=== PATIENT | male | born 1930 | race Caucasian/White ===

== ENCOUNTER → 2016-10-13 | Outpatient (CLI) | payer MEDICARE, OTHER ==
[~2016-10-13] MED LIST: ACETAMINOPHEN PO; ADVAIR 500-501 EACH INH; ADVAIR 5001 DISK W/1 IH; ADVAIR 5001 DISK W/D PO; ADVAIR DISKU1 500/50 INH; ALBUTEROL17 G1 IH; ALBUTEROL17 GM INH; ALBUTEROL2.5 MG/0.5 IH; ALFUZOSIN HCL10 MG; ALFUZOSIN HCL10 MG PO; ALFUZOSIN PO; ALLOPURINOL300 MG PO; ANTIVERT PO; ASPIRIN81 M2 PO; BENZONATATE PO; CARVEDILOL12.5 MG PO; CLOPIDOGREL75 MG PO; COREG12.5 M1 PO; COZAAR PO; DARVOCET-N 1001 TAB PO; DUONEB 2.5-0.5 M3 ML NEB; ELIQUIS2.5 MG PO; FLEXERIL PO; FUROSEMIDE40 MG PO; GLUCOPHAGE500 MG PO; IMDUR PO; LASIX PO; LASIX20 MG PO; LEVAQUIN750 MG PO; LEVOFLOXACIN500 MG PO; LOC PO; LOSARTAN POTASS50 MG PO; MEDI-MECLIZINE25 M1 PO; MEDROL PO; METFORMIN HCL500 M1 PO; NEXIUM PO; OMEPRAZOLE20 M2 PO; OMNICEF300 M1 PO; PHENERGAN PO; PHENERGAN25 MG PO; PREDNISOLONE5 MG PO; PREDNISONE PO; PREDNISONE10 MG PO; PRILOSEC PO; PROAIR HFA8.5 GM IH; PROAIR HFA8.5 GM INH; PROVENTIL INH; THEO-DUR300 MG DOB; THEO-DUR300 MG PO; THEOPHYLLIN PO; TYL325 PO; TYLOX 5-500 CA1 EACH PO; VICODIN PO; ZOCOR PO; ZYLOPRIM PO
--- NOTE | ~2016-10-13 | EKG ---
PATIENT: DELVIS RODRIGUEZ UNIT #: [id number] Ventricular Rate: 75 BPM Atrial Rate: 75 BPM P-R Interval: 148 ms QRS Duration: 90 ms Q-T Interval: 382 ms QTC Calculation(Bezet): 426 ms P [place]: 38 degrees Calculated R [place]: 54 degrees Calculated T [place]: 74 degrees Diagnosis Line: Sinus rhythm with Premature supraventricular Diagnosis Line: complexes Diagnosis Line: Otherwise normal ECG Diagnosis Line: When compared with ECG of 18-FEB-2015 13:34, Diagnosis Line: No significant change was found Diagnosis Line: Confirmed by PRINCESS SUAZO MD ([id number]) on 10/13/2016 Diagnosis Line: 5:29:13 PM INTERPRETING MD: GABRIELE VELAZCO
[2016-10-13 09:17] LABS: HEMATOCRIT 38.8 % (38.0-50.0); MEAN CELL VOLUME 91.6 FL (83-96); MEAN CORPUSCULAR HEMOGLOBIN 30.6 PG (28-34); MEAN CORPUSCULAR HGB CONC 33.5 g/dL (30-36); MEAN PLATELET VOLUME 9.2 FL (6.5-11.5); RED BLOOD COUNT 4.24 X10e (3.90-5.60); RED CELL DISTRIBUTION WIDTH 14.5 % (11.0-15.5); WHITE BLOOD COUNT 7.4 X10e3 (4.0-10.5)
[2016-10-13 09:38] LABS: INR 1.1; PARTIAL THROMBOPLASTIN TIME 28.5 SECONDS (23.5-31.3); PROTHROMBIN TIME (PATIENT) 11.2 SECONDS (9.6-11.5)
[2016-10-13 10:01] LABS: BLOOD UREA NITROGEN 31 mg/dL (9-23); BUN/CREATININE RATIO 28.18; CALCIUM SERUM 8.6 mg/dL (8.4-10.2); CARBON DIOXIDE 25 mmol/L (22-31); CHLORIDE 109 mmol/L (100-111); CREATININE SERUM 1.1 mg/dL (0.6-1.4); GLOM FILT RATE Estimated ABOVE60 mL/min (>60); GLUCOSE FASTING 121 mg/dL (70-110); SODIUM 140 mmol/L (135-145)
== END | disposition home or self-care (01) ==
LOC: CCVL 08:42
PROVIDERS: Internal Medicine Cardiovascular Disease
DX: I25.5 Ischemic cardiomyopathy (principal); I25.119 Atherosclerotic heart disease of native coronary artery with unspecified angina pectoris; R60.9 Edema, unspecified; R42 Dizziness and giddiness; R93.1 Abnormal findings on diagnostic imaging of heart and coronary circulation
CPT/HCPCS: 36415; 80048; 85027; 85610; 85730; 93005; 94640; C1769; C1887; C1894; J1644; J2250; J3010

== ENCOUNTER 2016-10-19 11:11 | Inpatient (IN) | payer MEDICARE, OTHER ==
--- NOTE | ~2016-10-19 | EKG ---
PATIENT: DELVIS RODRIGUEZ UNIT #: [id number] Ventricular Rate: 64 BPM Atrial Rate: 64 BPM P-R Interval: 150 ms QRS Duration: 88 ms Q-T Interval: 384 ms QTC Calculation(Bezet): 396 ms P [place]: 51 degrees Calculated R [place]: 22 degrees Calculated T [place]: 44 degrees Diagnosis Line: Sinus rhythm with Premature atrial complexes Diagnosis Line: Otherwise normal ECG Diagnosis Line: When compared with ECG of 13-OCT-2016 09:28, Diagnosis Line: No significant change was found Diagnosis Line: Confirmed by CALE GARCIA MD ([id number]) on 10/20/2016 Diagnosis Line: 4:44:17 PM INTERPRETING MD: JOSE VELAZCO
--- NOTE | ~2016-10-19 | DS ---
Unit #: [id number] #: [id number] Patient: DELVIS RODRIGUEZ [id number] [address] [address] [id number] I MR#: [id number] NAME: DELVIS RODRIGUEZ. ROOM: 312 Age: 86 Sex: M Admission Date: 10/19/2016 : 1930 Discharge Date: 10/22/2016 Attending Physician: Pankaj Hicks M.D. Primary Care Physician: Stephon Contreras M.D. DISCHARGE SUMMARY DIAGNOSIS ON ADMISSION Pneumonia. DIAGNOSES ON DISCHARGE 1. Pneumonia. 2. Chronic obstructive pulmonary disease. 3. Coronary artery disease. 4. History of congestive heart failure; no ejection fraction available. 5. Hypertension. 6. Hyperlipidemia. 7. Gout. 8. Gastroesophageal reflux disease. 9. Type 2 diabetes mellitus. 10. History of bladder cancer. DIAGNOSTIC STUDIES LABS: The patient's creatinine is 1.1, sodium 141, potassium 4.5. WBC is 9.3, hemoglobin 11, platelet count 166. Blood culture did not reveal any growth so far. Theophylline level was 3. IMAGING: On admission the patient had a CT scan of the chest done, which did not reveal any evidence of PE. There was an irregular density in the left base, which could be infiltrate, atelectasis, edema or mass. It was 16 mm. There was marked wall thickening in the lower lobe bronchi. A followup CT in 3 months was recommended. HOSPITAL COURSE This 86-year-old male was admitted to [facility] with shortness of air. Details are as per admission H and P. The patient was treated for COPD exacerbation and pneumonia. The patient has responded well to treatment and is much better. CT scan of chest was done with findings as above. Today, the patient is comfortable and is not in any acute distress. He wants to go home. CONDITION Stable. ACTIVITIES As tolerated. Unit #: [id number] #: [id number] Patient: DELVIS RODRIGUEZ DISCHARGE MEDICATIONS 1. Albuterol MDI 2 puffs q.4 hours p.r.n. for shortness of air. 2. Advair Diskus 500/50 mcg 1 inhalation b.i.d. 3. Metformin 500 mg p.o. daily. Restart in 3 days. 4. Coreg 12.5 mg p.o. daily. 5. Lasix 40 mg p.o. daily. 6. Zocor 40 mg p.o. daily. 7. Cozaar 50 mg p.o. daily. 8. Enteric-coated aspirin 81 mg p.o. daily. 9. Plavix 75 mg p.o. daily. 10. Theophylline 300 mg p.o. daily. 11. Imdur 30 mg p.o. daily. 12. Omnicef 300 mg p.o. b.i.d. for 5 days. 13. Prednisone 40 mg p.o. daily x5 days, then 20 mg p.o. daily for 5 days. FOLLOW-UP 1. The patient should follow up with primary care physician in 1 week. 2. The patient should have a CT scan of the chest in 3 months for followup on left lower lobe density. 3. 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 NOTE: The plan was discussed in detail with the patient, who showed complete understanding. Dictated by... Bassem Guzman/mirna TD: 10/22/2016 13:31 JOB #: [id number] DISCHARGE SUMMARY X Pankaj Hicks MD DISCHARGE SUMMARY
--- NOTE | ~2016-10-19 | CR72 ---
[facility] A Service of [facility] RADIOLOGY TEXT RESULTS PATIENT: DELVIS RODRIGUEZ LOCATION: C3A PC 312- : 30 UNIT #: [id number] AGE: [address]: Pankaj Hicks MD SEX: M ORDER DR: [id number] [facility] [address] [place], [place] [address] [id number] E MR#: [id number] Acc #: [id number] NAME: DELVIS RODRIGUEZ. : 1930 SEX: M STUDY DATE/TIME: 10/19/2016 9:44 UNIT: [facility] ROOM: STUDY DESCRIPTION: CR Chest Single View Portable Attending Physician: Praful Bullock M.D. Ordering Physician: Praful Bullock M.D. Primary Care Physician: Stephon Contreras M.D. MEDICAL IMAGING REPORT This report is preliminary unless electronic signature is present EXAM Chest portable, 10/19/2016. COMPARISON STUDIES 10/11/2016 HISTORY Shortness of breath, cough, and chest pain x2 weeks. History of bladder cancer. FINDINGS AP portable view is obtained and compared to the most recent study of August 2016, as well as films of February 2015. The heart size is stable. Lungs show evidence of chronic fibrosis and evidence of pleural disease on the right, with pleural calcification. There is prominence of interstitial markings, which I think in large part, is due to technique on this film, compared with the last. There is a little more focal infiltrate in the right base. CONCLUSION 1. 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 Prominence of the interstitial markings, which I think is accentuated by the technique. 2. Right basilar infiltrate. Dictated by... Tariq Hi M.D. THIS IS AN ELECTRONICALLY VERIFIED REPORT Tariq iH M.D. at 10/20/2016 4:45 PM [facility] A Service of [facility] RADIOLOGY TEXT RESULTS PATIENT: DELVIS RODRIGUEZ LOCATION: C3A PC 312-01 : 30 UNIT #: [id number] AGE: [address]: Pankja Hicks MD SEX: M ORDER DR: MERRY/vince TD: 10/19/2016 11:16 JOB #: [id number] MEDICAL IMAGING REPORT COPY
--- NOTE | ~2016-10-19 | CT16 ---
[facility] A Service of [facility] RADIOLOGY TEXT RESULTS PATIENT: DELVIS RODRIGUEZ LOCATION: [facility] - : 30 UNIT #: [id number] AGE: [address]: Pankaj Hicks MD SEX: M ORDER DR: [id number] [facility] [address] [place], [place] [address] [id number] I MR#: [id number] Acc #: [id number] NAME: DELVIS RODRIGUEZ. : 1930 SEX: M STUDY DATE/TIME: 10/19/2016 12:54 UNIT: C3A PCU ROOM: [facility] STUDY DESCRIPTION: CT Angio Chest for PE Attending Physician: Nany Rascon M.D. Ordering Physician: Praful Bullock M.D. Primary Care Physician: Stephon Contreras M.D. MEDICAL IMAGING REPORT This report is preliminary unless electronic signature is present EXAM CT scan of the chest with pulmonary embolus protocol. DATE OF EXAM 10/19/2016 INDICATION Shortness of air for 2 weeks. Dizziness, weakness today. COMPARISON Comparison chest CT from 10/07/2010. TECHNIQUE The patient was given 80 mL of Isovue-370 and spiral imaging was performed through the chest. 3D reconstructions of the pulmonary arteries were generated. NOTE: This CT exam was performed with one or more of the following radiation dose reduction techniques: automatic exposure control, adjustment of mA and/or kV according to patient size, and iterative reconstruction. FINDINGS There is optimal opacification of the pulmonary arteries and there is no CT evidence of pulmonary embolus. The aorta is not opacified but it is normal in size. The thyroid gland is normal. There is no mediastinal or hilar adenopathy. There is minimal benign-appearing pleural thickening in the right base with calcified pleural plaques and some noncalcified plaque formation as well. There is marked lower lobe bronchiectasis with wall thickening. There is an irregular density in the left base, measuring at least 16 mm in diameter. This might be atelectasis. This is new from 2010. The right pleural plaques are stable. IMPRESSION [facility] A Service of [facility] & [facility] RADIOLOGY TEXT RESULTS PATIENT: DELVIS RODRIGUEZ LOCATION: C3A 312-01 : 30 UNIT #: [id number] AGE: [address]: Pankaj Hicks MD SEX: M ORDER DR: 1. There is no CT evidence of pulmonary embolus. 2. Stable calcified pleural plaques and pleural thickening right base and right lower lobe as compared with 2011. 3. There is irregular density in the left base, that could be infiltrate, atelectasis or even a mass. It is at least 16 mm in size and it was not present in 2011. 4. There is marked wall thickening involving the lower lobe bronchi suggesting bronchitis. I suggest a short-term followup in 3 months for the left base parenchymal lesion. Dictated by... Ang Espinoza M.D. THIS IS AN ELECTRONICALLY VERIFIED REPORT Ang Espinoza M.D. at 10/20/2016 1:26 PM Anatoliy TD: 10/19/2016 16:07 JOB #: [id number] MEDICAL IMAGING REPORT COPY
--- NOTE | ~2016-10-19 | US84 ---
[id number] [facility]. [facility] [address]. [place], [place] [address] [id number] I MR#: [id number] Acc #: [id number] NAME: DELVIS RODRIGUEZ : 1930 SEX: M STUDY DATE/TIME: 10/19/2016 18:20 UNIT: C3A PCU ROOM: 312 STUDY DESCRIPTION: US LE Veins Complete Riaz Stdy Attending Physician: Nany Rascon M.D. Ordering Physician: Praful Bullock M.D. Primary Care Physician: Stephon Contreras M.D. MEDICAL IMAGING REPORT This report is preliminary unless electronic signature is present EXAM Bilateral lower extremity venous Doppler 10/19/2016 HISTORY Shortness of air since this morning. Bilateral leg swelling for 2 weeks. COMPARISON STUDIES None. TECHNIQUE Venous ultrasound examination of both lower extremities was performed using grayscale, spectral Doppler and color flow Doppler imaging. FINDINGS The examination is negative. There is no evidence of deep venous thrombus from the groin to the lower calf bilaterally. Visualized greater saphenous veins are also patent. IMPRESSION Negative examination. No evidence of lower extremity deep venous thrombosis. Dictated by... Ezra Steve M.D. THIS IS AN ELECTRONICALLY VERIFIED REPORT Ezra Steve M.D. at 10/23/2016 4:33 PM TEV/pcl TD: 10/19/2016 23:27 JOB #: [id number] MEDICAL IMAGING REPORT COPY
--- NOTE | ~2016-10-19 | HP ---
Unit #: [id number] #: [id number] Patient: DELVIS RODRIGUEZ [id number] [facility] [address] [place], [place] [address] [id number] E MR#: [id number] NAME: DELVIS RODRIGUEZ ROOM: Age: 86 Sex: M Admission Date: 10/19/2016 : 1930 Attending Physician: Praful Bullock M.D. Primary Care Physician: Stephon Contreras M.D. HISTORY AND PHYSICAL CHIEF COMPLAINT Short of air. HISTORY OF PRESENT ILLNESS The patient is an 86-year-old male with past medical history of COPD, CHF, coronary artery disease, hypertension, hyperlipidemia, diabetes, bladder cancer, gout, who presented to the emergency department for evaluation of the above. The patient states that he has had a two-week history of worsening shortness of breath and productive cough. He denies any fever or chills. He had an episode of chest pain this morning that he describes as "tight." It lasted about two hours and resolved after a breathing treatment. It did not radiate. He denied any nausea or diaphoresis in association with the pain. He states that his appetite has been good. He denies any vomiting. He did have loose stool two days ago but has not had a bowel movement since that time. He has had urinary frequency but was just started on Lasix. In the emergency department a chest x-ray was done and showed chronic changes. D-dimer was elevated and so CT of the chest PE protocol was done and showed no pulmonary embolus but a left basilar density was noted concerning for infiltrate versus mass. He was given Rocephin and azithromycin in the emergency department. He is being admitted to [facility] for evaluation and further treatment. PAST MEDICAL HISTORY 1. Admission to [facility] January 17 through January 20, 2011 for pneumonia. 2. 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 3. Coronary artery disease. The patient had a cardiac catheterization October 13, 2016. There are no results in [employer] but he apparently had multifocal disease. The plan is medical management with possible stent and/or bypass in the future. The patient typically sees Dr. Pitts but apparently saw Dr. Godinez for the cardiac catheterization. 4. Congestive heart failure with no ejection fraction available in [facility]. 5. Hypertension. 6. Hyperlipidemia. 7. GERD. 8. Gout. 9. Diabetes. Unit #: [id number] #: [id number] Patient: DELVIS RODRIGUEZ. History of bladder cancer, status post chemotherapy and resection. PAST SURGICAL HISTORY 1. Cardiac catheterization (no records). 2. Appendectomy. 3. Back surgery. 4. Vocal cord cyst removal. 5. Finger surgery. 6. Both knee surgery. 7. Transurethral resection of bladder tumor. SOCIAL HISTORY The patient lives with his . He quit smoking in 1982. There is no alcohol use. He has a cane and a walker that he does not use. FAMILY HISTORY Family history is notable for his mother having pancreatic cancer. His dad had stomach cancer. He has multiple brothers who have had coronary artery disease. ALLERGIES No known allergies. HOME MEDICATIONS 1. Advair 500/50 b.i.d. 2. Omeprazole 20 mg daily. 3. Zocor 40 mg daily. 4. Alfuzosin 10 mg daily. 5. ProAir b.i.d. 6. Theophylline 300 mg daily. 7. Losartan 50 mg daily. 8. Metformin 500 mg daily. 9. Furosemide 40 mg daily. 10. Carvedilol 12.5 mg b.i.d. 11. Plavix 75 mg daily. 12. Imdur 30 mg daily. 13. Aspirin 81 mg daily. REVIEW OF SYSTEMS A complete review of systems is negative except as indicated in the HPI. DIAGNOSTIC STUDIES CARDIOVASCULAR: EKG shows sinus rhythm with premature atrial complexes at a rate of 64 beats per minute. IMAGING: Chest x-ray shows chronic changes. CT of the chest PE protocol shows no PE. There is a density in the left base concerning for infiltrate versus mass. LABORATORY: Complete blood count notable for hemoglobin and hematocrit of 12 and 35.8 respectively. Troponin is less than 0.05. INR is 1. Arterial blood gas shows pH of 7.418, pCO2 of 40.7, pO2 of 61.6 on room air. Comprehensive metabolic panel notable for a glucose of 116, BUN and creatinine 41 and 1.4 respectively, BNP is 20, D-dimer is 2494. PHYSICAL EXAMINATION VITAL SIGNS: Temperature is 97.9. Pulse 72. Respirations 27. Blood Unit #: [id number] #: [id number] Patient: DELVIS RODRIGUEZ pressure 117/52. Oxygen saturation is 97% on room air. GENERAL: The patient is a very pleasant male who is awake and alert. HEENT: The head is atraumatic. Mucous membranes are moist. NECK: Neck is supple. Trachea is midline. CARDIOVASCULAR: Regular rate and rhythm. LUNGS: Demonstrate inspiratory and expiratory wheezes. Breathing is not labored with conversation. ABDOMEN: Abdomen is soft, nontender, with bowel sounds present in all four quadrants. EXTREMITIES: Nontender with no pedal edema. NEUROLOGIC: The patient is awake and alert. He follows commands. PSYCHIATRIC: Mood and affect are normal. SKIN: Skin of examined areas is warm and dry. ASSESSMENT The patient is an 86-year-old male with: 1. Pneumonia, community acquired. 2. Chronic obstructive pulmonary disease exacerbation. 3. Congestive heart failure with unknown ejection fraction. 4. History of coronary artery disease with recent cardiac catheterization within the past week. 5. Hypertension. 6. Hyperlipidemia. 7. Diabetes. 8. Bladder cancer. 9. Gout. 10. Gastroesophageal reflux disease. 11. Former smoker. PLAN 1. Admit to intermediate level. 2. Healthy heart consistent carb diet. 3. Blood cultures x2. 4. Sputum culture and sensitivity. 5. Supplemental oxygen 2 to 4 liters to maintain saturations greater than 92%. 6. Check procalcitonin level. 7. Rocephin IV and azithromycin IV pending further workup. 8. DuoNebs. 9. Solu-Medrol and Mucinex. 10. Serial cardiac enzymes. 11. Strict Is and Os and daily weights. 12. Will check bilateral lower extremity venous Dopplers for further evaluation of elevated D-dimer. 13. Hemoglobin A1C. 14. Low dose sliding-scale insulin with Accu-Cheks. 15. Protonix for GI prophylaxis since the patient will be on Solu-Medrol. 16. Additional workup and consultants based on above. Dictated by Nany Rascon M.D. Unit #: [id number] #: [id number] Patient: DELVIS RODRIGUEZ AW/cf TD: 10/19/2016 15:25 JOB #: [id number] HISTORY AND PHYSICAL X Nany Rascon MD HISTORY AND PHYSICAL
[2016-10-19 09:58] LABS: BASOPHIL# 0.1 X10e3 (0-0.3); BASOPHIL% 0.6 % (0-2.5); EOSINOPHIL% 0.6 % (0.0-7.0); HEMATOCRIT 35.8 % (38.0-50.0); MEAN CELL VOLUME 90.9 FL (83-96); MEAN CORPUSCULAR HEMOGLOBIN 30.5 PG (28-34); MEAN CORPUSCULAR HGB CONC 33.6 g/dL (30-36); MEAN PLATELET VOLUME 9.7 FL (6.5-11.5); MONOCYTE# 0.8 X10e3 (0-1.0); MONOCYTE% 9.6 % (3.0-12.0); NEUTROPHIL# 5.7 X10e3 (1.5-7.1); NEUTROPHIL% 66.2 % (40-75); PLATELET COUNT 188 X10e3 (140-420); RED BLOOD COUNT 3.94 X10e (3.90-5.60); RED CELL DISTRIBUTION WIDTH 14.2 % (11.0-15.5); WHITE BLOOD COUNT 8.6 X10e3 (4.0-10.5)
[2016-10-19 10:05] LABS: DIFF IND NO
[2016-10-19 10:06] LABS: POC - CKMB 1.7 ng/mL (0.0-7.9); POC - TROPONIN <0.05 ng/mL (<=0.05)
[2016-10-19 10:10] LABS: PARTIAL THROMBOPLASTIN TIME 28.1 SECONDS (23.5-31.3); PROTHROMBIN TIME (PATIENT) 10.7 SECONDS (9.6-11.5)
[2016-10-19 10:32] LABS: ARTERIAL BLD GAS O2 SATURATION 90.7 % (90.0-100.0); ARTERIAL BLOOD GAS CARBOXY HB 0.7 %sat (0.0-9.0); ARTERIAL BLOOD GAS HCO3 26.3 mmol/L; ARTERIAL BLOOD GAS MET HB 0.7 %sat (0.0-2.0); ARTERIAL BLOOD GAS PCO2 40.7 mmHg (35.0-45.0); ARTERIAL BLOOD GAS pH 7.418 (7.350-7.450)
[2016-10-19 10:33] LABS: ARTERIAL BLOOD GAS ALLEN TEST NORMAL; ARTERIAL BLOOD GAS ART SITE LEFT RADIAL; ARTERIAL BLOOD GAS PO2 61.6 mmHg (80.0-100); ARTERIAL DRAW? YES
[2016-10-19 10:39] LABS: ALBUMIN SERUM 3.8 g/dL (3.5-5.0); BILIRUBIN, DIRECT 0.1 mg/dL (0.0-0.2); BILIRUBIN,INDIRECT 0.4 mg/dL (0.0-0.9); BILIRUBIN,TOTAL 0.5 mg/dL (0.2-2.0); BUN/CREATININE RATIO 29.28; CALCIUM SERUM 8.6 mg/dL (8.4-10.2); CREATININE SERUM 1.4 mg/dL (0.6-1.4); GLOM FILT RATE Estimated 51.1 mL/min (>60); POTASSIUM 4.1 mmol/L (3.5-5.1)
[~2016-10-19 11:11] MED LIST changes: -ADVAIR 500-501 EACH INH; -ALFUZOSIN HCL10 MG; -ASPIRIN81 M2 PO; -CARVEDILOL12.5 MG PO; -CLOPIDOGREL75 MG PO; -ELIQUIS2.5 MG PO; -FUROSEMIDE40 MG PO; -IMDUR PO; -LASIX20 MG PO; -LOSARTAN POTASS50 MG PO; -METFORMIN HCL500 M1 PO; -OMEPRAZOLE20 M2 PO; -OMNICEF300 M1 PO; -PREDNISONE10 MG PO; -PROAIR HFA8.5 GM INH; -THEO-DUR300 MG DOB; -TYL325 PO
[2016-10-19 12:20] LABS: POC - CKMB 1.1 ng/mL (0.0-7.9); POC - TROPONIN <0.05 ng/mL (<=0.05)
[2016-10-19] MEDS ORDERED: ADVAIR 500-501 EACH INH (14:02)
[2016-10-19] MEDS ORDERED: OMEPRAZOLE20 M2 PO (14:05)
[2016-10-19] MEDS ORDERED: ZOCOR PO (14:06)
[2016-10-19] MEDS ORDERED: PROAIR HFA8.5 GM INH (14:07)
[2016-10-19] MEDS ORDERED: ALFUZOSIN HCL10 MG (14:07)
[2016-10-19] MEDS ORDERED: LOSARTAN POTASS50 MG PO (14:08)
[2016-10-19] MEDS ORDERED: THEO-DUR300 MG DOB (14:08)
[2016-10-19] MEDS ORDERED: METFORMIN HCL500 M1 PO (14:10)
[2016-10-19] MEDS ORDERED: FUROSEMIDE40 MG PO (14:11)
[2016-10-19] MEDS ORDERED: CARVEDILOL12.5 MG PO (14:12)
[2016-10-19] MEDS ORDERED: CLOPIDOGREL75 MG PO (14:13)
[2016-10-19] MEDS ORDERED: IMDUR PO (14:14)
[2016-10-19] MEDS ORDERED: ASPIRIN81 M2 PO (14:14)
[2016-10-19 22:19] LABS: %MB 2.7 % (0.0-4.0); MB 1.7 ng/ml
[2016-10-20 03:00] LABS: %MB 2.7 % (0.0-4.0); MB 1.7 ng/ml
[2016-10-20 06:01] LABS: BASOPHIL% 0.1 % (0-2.5); HEMATOCRIT 34.2 % (38.0-50.0); HEMOGLOBIN 11.4 gm/dL (13.0-16.0); LYMPHOCYTE# 0.6 X10e3 (1.0-3.5); MEAN CELL VOLUME 89.9 FL (83-96); MEAN CORPUSCULAR HEMOGLOBIN 29.9 PG (28-34); MEAN CORPUSCULAR HGB CONC 33.2 g/dL (30-36); MEAN PLATELET VOLUME 9.6 FL (6.5-11.5); MONOCYTE# 0.1 X10e3 (0-1.0); MONOCYTE% 1.9 % (3.0-12.0); NEUTROPHIL# 6.2 X10e3 (1.5-7.1); PLATELET COUNT 165 X10e3 (140-420); RED BLOOD COUNT 3.81 X10e (3.90-5.60); RED CELL DISTRIBUTION WIDTH 13.9 % (11.0-15.5)
[2016-10-20 06:10] LABS: DIFF IND NO
[2016-10-20 08:24] LABS: ALBUMIN SERUM 3.3 g/dL (3.5-5.0); ALKALINE PHOSPHATASE 77 U/L (32-92); ALT (SGPT) 12 U/L (10-40); AST (SGOT) 15 U/L (10-42); BILIRUBIN,TOTAL 0.4 mg/dL (0.2-2.0); BLOOD UREA NITROGEN 44 mg/dL (9-23); CALCIUM SERUM 8.2 mg/dL (8.4-10.2); CARBON DIOXIDE 23 mmol/L (22-31); CHLORIDE 105 mmol/L (100-111); CREATININE SERUM 1.1 mg/dL (0.6-1.4); GLOM FILT RATE Estimated ABOVE60 mL/min (>60); GLUCOSE FASTING 173 mg/dL (70-110); POTASSIUM 4.2 mmol/L (3.5-5.1); PROTEIN TOTAL SERUM 6.1 g/dL (6.0-8.3); SODIUM 138 mmol/L (135-145)
[2016-10-22 05:10] LABS: HEMATOCRIT 33.5 % (38.0-50.0); MEAN CELL VOLUME 90.5 FL (83-96); MEAN CORPUSCULAR HEMOGLOBIN 29.7 PG (28-34); MEAN CORPUSCULAR HGB CONC 32.8 g/dL (30-36); MEAN PLATELET VOLUME 10.3 FL (6.5-11.5); RED BLOOD COUNT 3.7 X10e (3.90-5.60); RED CELL DISTRIBUTION WIDTH 13.9 % (11.0-15.5); WHITE BLOOD COUNT 9.3 X10e3 (4.0-10.5)
[2016-10-22 06:32] LABS: BLOOD UREA NITROGEN 47 mg/dL (9-23); BUN/CREATININE RATIO 42.72; CALCIUM SERUM 8.2 mg/dL (8.4-10.2); CARBON DIOXIDE 27 mmol/L (22-31); CHLORIDE 106 mmol/L (100-111); CREATININE SERUM 1.1 mg/dL (0.6-1.4); GLOM FILT RATE Estimated ABOVE60 mL/min (>60); GLUCOSE FASTING 161 mg/dL (70-110); POTASSIUM 4.5 mmol/L (3.5-5.1); SODIUM 141 mmol/L (135-145)
[2016-10-22] MEDS ORDERED: OMNICEF300 M1 PO (11:48)
[2016-10-22] MEDS ORDERED: PREDNISONE10 MG PO (11:50)
== END 2016-10-22 14:37 | disposition home health service (06) | DRG 190 ==
LOC: CED 11:11 → CEDOF 15:05 → C3A PCU 20:18
PROVIDERS: Emergency Medicine; Internal Medicine
DX: J44.0 Chronic obstructive pulmonary disease with (acute) lower respiratory infection (principal); J18.9 Pneumonia, unspecified organism; J96.01 Acute respiratory failure with hypoxia; I11.0 Hypertensive heart disease with heart failure; I50.9 Heart failure, unspecified; E11.9 Type 2 diabetes mellitus without complications; I42.9 Cardiomyopathy, unspecified; J44.1 Chronic obstructive pulmonary disease with (acute) exacerbation; Z87.891 Personal history of nicotine dependence; I25.10 Atherosclerotic heart disease of native coronary artery without angina pectoris; E78.5 Hyperlipidemia, unspecified; M10.9 Gout, unspecified; K21.9 Gastro-esophageal reflux disease without esophagitis; Z79.84 Long term (current) use of oral hypoglycemic drugs; Z85.51 Personal history of malignant neoplasm of bladder; Z82.49 Family history of ischemic heart disease and other diseases of the circulatory system; E66.9 Obesity, unspecified; Z68.29 Body mass index [BMI] 29.0-29.9, adult; Z90.49 Acquired absence of other specified parts of digestive tract; N40.0 Benign prostatic hyperplasia without lower urinary tract symptoms
CPT/HCPCS: 36415; 36600; 71010; 71275; 80048; 80053; 80076; 80198; 82308; 82550; 82553; 82803; 82947; 83036; 83880; 84484; 85025; 85027; 85379; 85610; 85730; 87040; 87070; 87205; 93005; 93970; 94640; 94760; 96365; 96366; 96367; 99285; J0456; J0696; J1815; J2920; J2930; Q9967

== ENCOUNTER 2017-01-30 00:48 | Inpatient (IN) | payer MEDICARE, OTHER ==
--- NOTE | ~2017-01-30 | HP ---
Unit #: [id number] #: [id number] Patient: DELVIS RODRIGUEZ [id number] [facility]. [place], [place] [address] [id number] E MR#: [id number] NAME: DELVIS RODRIGUEZ ROOM: Age: 86 Sex: M Admission Date: 01/30/2017 : 1930 Attending Physician: Laurence Allan M.D. Primary Care Physician: Stephon Contreras M.D. HISTORY AND PHYSICAL CHIEF COMPLAINT Episode of dizziness. HISTORY This very pleasant 86-year-old male with CAD, hypertension, AODM, is admitted for dizziness. The patient was well until 10:00 last evening. He rolled over in his bed and transiently was dizzy. It sounds as if this was more of an imbalance than true lightheadedness but the family felt that the patient was lightheaded. He denied increased shortness of breath over his baseline COPD. No chest pain, palpitations with the above. At this time he feels fine. He was intermittently in the heat yesterday. He presented to this emergency department earlier this morning with stable vital signs, although he was bradycardic to 41. Was mildly orthostatic on exam, and does have acute kidney injury. In the ER gentleman normal saline was ordered. The patient tells me that he was recently admitted to [facility] for PCI and stents 10/2016. Apparently rapid response was called as the patient's heart rate was abnormal, but I do not have details. I do see that he is anticoagulated with Eliquis. PAST MEDICAL HISTORY 1. Recent admission 10/2016 for possible pneumonia. 2. CAD with recent admission to [facility] in October for PCI and stent and likely arrhythmias. The patient is followed by Dr. Pitts, ejection fraction is unknown, although patient has a reported history of congestive heart failure. 3. Hypertension. 4. Hyperlipidemia. 5. GERD. 6. Gout. 7. AODM. 8. DJD. 9. Bladder cancer, status post chemotherapy and resection. 10. Appendectomy. 11. Back surgery. 12. Vocal cord cyst excision. 13. Hand surgery. 14. Knee surgery. 15. TUR for bladder tumor. ALLERGIES None. Unit #: [id number] #: [id number] Patient: DELVIS RODRIGUEZ HOME MEDICATIONS Advair 500/50 one puff b.i.d.; Prilosec 20 mg daily; alfuzosin 10 mg daily; theophylline ER 300 mg daily; Plavix 75 mg daily; metformin 500 mg daily; aspirin 81 mg daily; nitroglycerin p.r.n. chest pain; ProAir two puffs as needed; Eliquis 2.5 mg b.i.d.; Lipitor 40 mg daily; carvedilol 3.125 mg b.i.d.; Spiriva two puffs daily; and Lasix 40 mg daily. FAMILY HISTORY Noncontributory given patient's age. SOCIAL HISTORY The patient lives with his who currently is hospitalized at [facility]. He quit smoking in 1982. Drinks one beer a week. REVIEW OF SYSTEMS Notable for dizziness as discussed above, CHF, CAD, COPD, hypertension, hyperlipidemia, GERD, gout, AODM, DJD, bladder cancer and above mentioned surgeries. Other systems were reviewed and are otherwise negative. PHYSICAL EXAMINATION GENERAL: Pleasant, young-appearing, 86-year-old male currently in no acute distress. VITAL SIGNS: Temperature 97.8, initial pulse was 41, currently is 55, O2 saturation 96% on room air. Blood pressure 137/55, respirations 16. Patient was mildly orthostatic on exam. HEENT: Eyes - PERRLA. Extraocular muscles are intact. Pharynx is benign. NECK: Supple without adenopathy or thyromegaly. CHEST: Clear. CARDIAC: Normal S1 and S2 without murmur. ABDOMEN: Bowel sounds are present. No hepatosplenomegaly, tenderness, or masses. EXTREMITIES: With mild edema, right more so than left with negative Darci sign. NEUROLOGIC: Patient is awake, alert, and oriented. Cranial nerves are intact. Equal strength throughout. DIAGNOSTIC STUDIES ADMISSION LABS: Hematocrit is 33.6, which is stable. Normal white count and platelet count is 129 down from 166. Normal coags. SMA 12 - glucose 125, BUN 36, creatinine 1.5, up from a creatinine of 1.1, magnesium 1.5, BNP is normal. Cardiac markers are negative. IMAGING STUDIES: Head CT - no acute disease. Chest x-ray - pleural reaction or calcification right chest. CARDIOLOGY STUDIES: EKG shows sinus bradycardia with APCs, heart rate is 40s to 50s. ASSESSMENT 1. Episode of dizziness, which may represent transient peripheral vertigo but patient is bradycardic. 2. Acute kidney injury, patient is mildly orthostatic. 3. CAD, status post PCI and stent. 4. AODM. 5. COPD. 6. Anticoagulated. Unit #: [id number] #: [id number] Patient: DELVIS RODRIGUEZ 7. GERD. PLANS 1. Gentle IV fluids, hold Lasix for 24 hours and check post void bladder scan. 2. Obtain recent records from [facility] in regards to recent PCI and stent. 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 May need to decrease or hold carvedilol. 3. Await urinalysis. 4. Will order IV magnesium for low magnesium level. Dictated by Bassem Swan/ts TD: 01/30/2017 06:53 JOB #: [id number] HISTORY AND PHYSICAL Page 1 of 1 X Savita Ellis MD X HISTORY AND PHYSICAL
--- NOTE | ~2017-01-30 | CO ---
Unit #: [id number] #: [id number] Patient: DELVSI RODRIGUEZ [id number] [address] [place], [place] [address] [id number] I MR#: [id number] NAME: DELVIS RODRIGUEZ. ROOM: 334 Age: 86 Sex: M Admission Date: 01/30/2017 : 1930 Attending Physician: Pankaj Hicks M.D. Primary Care Physician: Stephon Contreras M.D. Consultation Date: 01/30/2017 CONSULTATION REPORT REASON FOR CONSULTATION Dizziness. HISTORY OF PRESENT ILLNESS This is an 86-year-old male, known to Dr. Godinez, with prior history of hypertension, hyperlipidemia, type 2 diabetes, tobacco abuse, COPD, and coronary artery disease with drug-eluting to mid LAD in 10/2016. He also has a history of chronic systolic congestive heart failure. His last ejection fraction was 35% to 40%. The patient was lying in bed, and when he rolled over in bed, he felt dizzy and felt like the room was spinning. He states he rolled over to the other side and the room was still spinning and the spells of dizzy. He called his daughter who told him to go to the ER. He denies chest pain, pressure, or tightness. He denies nausea, vomiting, or diarrhea. He denies any recent illness. He has not had any recurrence of dizziness since the initial episode. In the ER, his heart rate was noted to be in the 40s. He did have some orthostatic hypotension. His blood pressure lying was 135/71 and standing 116/101. PAST MEDICAL HISTORY 1. Coronary artery disease status post PTCA and drug-eluting stent to mid LAD in 10/2016. 2. Cardiac cath in 10/2016 showed left main normal, LAD mid 80%, left circumflex OM1 70% to 80%, and RCA was not injected. 3. History of chronic systolic congestive heart failure; left ventricular EF 35% to 40%, grade 1 diastolic dysfunction, mild TR per echo in 10/2016. 4. Hypertension. 5. Hyperlipidemia. 6. Diabetes mellitus, type 2. 7. Tobacco abuse. 8. COPD. 9. BPH. 10. History of bladder cancer. 11. GERD. 12. Arthritis. 13. Hepatic steatosis. PAST SURGICAL HISTORY 1. Appendectomy. 2. Back surgery. 3. Hand surgery. 4. Knee surgery. Unit #: [id number] #: [id number] Patient: DELVIS RODRIGUEZ 5. TUR for bladder tumor. 6. Vocal cord cyst excision. 7. Cardiac cath in 10/2016. SOCIAL HISTORY He lives with his who is hospitalized here at [facility]. He is a former smoker, who quit in 1982. He drinks occasional alcohol, 1 beer per week. Denies illicit drug use. FAMILY HISTORY Noncontributory given the patient's age. ALLERGIES No known drug allergies. HOME MEDICATIONS Advair Diskus 500/50 twice a day, Prilosec 20 once a day, alfuzosin 10 mg once a day, theophylline 300 mg once a day, Plavix 75 mg once a day, metformin 500 mg once a day, aspirin 81 mg once a day, nitroglycerin 0.4 mg sublingual p.r.n. chest pain, ProAir MDI 2 puffs as needed, Eliquis 2.5 mg twice a day, Lipitor 40 mg once a day, Coreg 3.125 mg twice a day, Spiriva 18 mcg once a day, and Lasix 40 mg p.o. once a day. REVIEW OF SYSTEMS Otherwise negative except for what was stated in the HPI. PHYSICAL EXAMINATION VITAL SIGNS: Temperature 99.1, heart rate 68, respiratory rate 20, blood pressure 172/82, height 71 inches, and weight 85.7 kg. GENERAL: Alert and oriented 86-year-old male. Resting in bed, in no acute distress. HEENT: Head is atraumatic and normocephalic. Pupils are equal and round. Mucous membranes are moist. NECK: Supple. Trachea is midline. Negative for JVD. LUNGS: Inspiratory expiratory wheezes throughout. Nonlabored respirations. CARDIOVASCULAR: S1 and S2. Regular rate and rhythm. No significant murmurs, rubs, or gallops auscultated. ABDOMEN: Soft, nontender, and nondistended. EXTREMITIES: Pulses are palpable. A 1+ pedal edema. No cyanosis. NEUROLOGIC: Alert and oriented x3. Moves all extremities equally and follows commands without difficulty. DIAGNOSTIC STUDIES LABORATORY RESULTS: Sodium 140, potassium 3.9, chloride 108, BUN 36, creatinine 1.5, and glucose 125. Hemoglobin 11.1, hematocrit 33.6, white blood cell count 6.5, and platelets 129. AST 19, ALT 13, and alkaline phosphatase 92. BNP 24 and lqmrt-az-[id number] troponin less than 0.05. IMAGING STUDIES: Chest x-ray showed calcified plaque formation in right anterior chest, unchanged from 10/2016. No focal infiltrates. Heart size is normal. CT of the head was normal and there is no acute finding. CARDIOVASCULAR STUDIES: EKG showed sinus rhythm with a ventricular rate of 60 and occasional PACs, and nonspecific T-wave abnormalities. ASSESSMENT 1. Dizziness. Unit #: [id number] #: [id number] Patient: DELVIS RODRIGUEZ 2. Sinus bradycardia, now in sinus rhythm. 3. Mild orthostatic hypotension. 4. Acute kidney injury. 5. Coronary artery disease status post drug-eluting stent to mid left anterior descending in 10/2016. 6. Diabetes mellitus, type 2. 7. Hypertension. 8. Hyperlipidemia. 9. Chronic obstructive pulmonary disease. 10. Tobacco abuse. PLAN 1. Restart Lasix. 2. Continue home medications. 3. No recurrent dizziness. No symptoms of angina at this time. The patient is wheezing, questionable whether he has bronchitis. We will continue to monitor. Thank you for asking us to see this patient. We appreciate the consult. Dictated by... Breonna Brasher APRN for Bassem Boone/ammon TD: 02/01/2017 13:38 JOB #: [id number] CONSULTATION REPORT Page 1 of 1 X X CONSULTATION REPORT
--- NOTE | ~2017-01-30 | DS ---
Unit #: [id number] #: [id number] Patient: DELVIS RODRIGUEZ [id number] [facility] [address] [place], [place] [address] [id number] I MR#: [id number] NAME: DELVIS RODRIGUEZ. ROOM: 334 Age: 86 Sex: M Admission Date: 01/30/2017 : 1930 Discharge Date: 02/01/2017 Attending Physician: Pankaj Hicks M.D. Primary Care Physician: Stephon Contreras M.D. DISCHARGE SUMMARY DIAGNOSES ON DISCHARGE 1. Dizziness, resolved. 2. Coronary artery disease, status post percutaneous transluminal coronary angioplasty. 3. Chronic systolic congestive heart failure, ejection fraction of 35% to 40%. 4. Benign prostatic hypertrophy. 5. History of bladder cancer. 6. Hypertension. 7. Type 2 diabetes mellitus. 8. Anemia. 9. Chronic obstructive pulmonary disease. 10. Gastroesophageal reflux disease. 11. History of gout. 12. Degenerative joint disease. 13. History of atrial fibrillation. CONSULTATIONS Dr. Pitts and group - Cardiac consultation. LABS AND PROCEDURES DONE The patient's creatinine is 1.4, sodium is 139, potassium is 3.5. AST and ALT are within normal limits. Patient's WBC is 6.5, hemoglobin is 11.1, platelet count is 129. Bilateral renal ultrasound revealed clinical medical renal disease with bilateral renal cysts. Troponin was less than 0.03. Chest x-ray did not reveal any evidence of acute infiltrate. CT scan of head was normal. HOSPITAL COURSE 86-year-old male was admitted to [facility] with dizziness. Details are as per admission H and P. The patient was seen by Dr. Pitts in consultation. Patient's CT head was negative. It was recommended that patient can be discharged home. Will follow up on outpatient basis. Patient was not prescribed any TONYA inhibitor or ARB because of acute kidney injury. Unit #: [id number] #: [id number] Patient: DELVIS RODRIGUEZ Acute kidney injury: The patient's creatinine is better now. It is 1.4 today. We will advise patient to follow up with primary care physician. Acute urinary retention: The patient had residuals of [address] Medrano saw patient in consultation. Renal ultrasound was done which did not reveal acute finding. The patient refused Flomax or Proscar treatment. Dr. Medrano has advised him to follow up with him on an outpatient basis. Today, patient is comfortable, is not in acute distress. On physical examination, vital signs reveal temperature 97.7, pulse is 62/minute, respiratory rate is 16/minute, blood pressure 123/58. HEENT: No conjunctival congestion. Sclerae is not icteric. NECK: Supple. Trachea is central. RESPIRATORY EXAMINATION: Decreased breath sounds bilaterally. There are no wheezes or crackles. HEART: Regular rate and rhythm. S1, S2. ABDOMEN: Soft, nontender. Bowel sounds are present in all four quadrants. NEUROLOGICAL: Strength is 4+ bilaterally. SKIN: Warm and dry. RECOMMENDATIONS ON DISCHARGE Patient is stable. Activity as tolerated. MEDICATIONS 1. Lasix 40 mg p.o. every morning. 2. Zocor 40 mg p.o. q. h.s. 3. Eliquis 2.5 mg p.o. b.i.d. 4. Albuterol MDI, two puffs q.4 hours p.r.n. 5. Advair Diskus 500/50, one inhalation b.i.d. 6. Tylenol 650 mg p.o. q.4 hours p.r.n. 7. Coreg 12.5 mg p.o. b.i.d. 8. Plavix 75 mg p.o. daily. 9. Prilosec 20 mg p.o. daily. 10. Theophylline 300 mg p.o. daily. 11. Imdur ER 30 mg p.o. daily. FOLLOWUP The patient is advised to follow up with primary care physician in one week and with Dr. Pitts as scheduled on March 14Sunday, at 11:45 a.m. We will arrange home health regarding PT, OT and nursing. Please make note that patient's aspirin was discontinued so he should only be on Plavix and Eliquis. The plan was discussed in detail with Dr. Pitts. The plan was also discussed with patient's . The patient should follow up with Dr. Medrano in three to four weeks. Dictated by... Pankaj Hicks M.D. Unit #: [id number] #: [id number] Patient: DELVIS RODRIGUEZ Susannah Mcleod TD: 02/01/2017 13:02 JOB #: [id number] DISCHARGE SUMMARY Page 1 of 1 X Pankaj Hicks MD DISCHARGE SUMMARY
--- NOTE | ~2017-01-30 | CR72 ---
[facility] A Service of [facility] RADIOLOGY TEXT RESULTS PATIENT: DELVIS RODRIGUEZ LOCATION: [facility] 334 : 30 UNIT #: [id number] AGE: [address]: Pankaj Hicks MD SEX: M ORDER DR: [id number] [facility] [address] [facility] [place], [place] [address] [id number] I MR#: [id number] Acc #: [id number] NAME: DELVIS RODRIGUEZ. : 1930 SEX: M STUDY DATE/TIME: 01/30/2017 2:11 UNIT: [address] ROOM: [facility] STUDY DESCRIPTION: CR Chest Single View Portable Attending Physician: Pankaj Hicks M.D. Ordering Physician: Laurence Allan M.D. Primary Care Physician: Stephon Contreras M.D. MEDICAL IMAGING REPORT This report is preliminary unless electronic signature is present EXAM Portable chest. INDICATION Shortness of air and dizziness tonight. FINDINGS A portable view of the chest was obtained. There is a calcified plaque formation in the right anterior chest better seen on the CT scan done 10/2016. There are no focal infiltrates. The heart size is normal. IMPRESSION Pleural reaction with calcification is noted in the right chest. This was better visualized on the CT scan of 11/12/2016. I do not see any evidence of acute infiltrate. Dictated by... Ang Espinoza M.D. THIS IS AN ELECTRONICALLY VERIFIED REPORT Ang Espinoza M.D. at 01/30/2017 1:21 PM FEL/gz TD: 01/30/2017 10:34 JOB #: [id number] MEDICAL IMAGING REPORT Page 1 of 1 COPY
--- NOTE | ~2017-01-30 | US77 ---
[facility] A Service of [facility] RADIOLOGY TEXT RESULTS PATIENT: DELVIS RODRIGUEZ LOCATION: [facility] : 30 UNIT #: [id number] AGE: [address]: Pankaj Hicks MD SEX: M ORDER DR: [id number] [facility] [address] [place], [place] [address] [id number] I MR#: [id number] Acc #: [id number] NAME: DELVIS RODRIGUEZ : 1930 SEX: M STUDY DATE/TIME: 01/31/2017 19:11 UNIT: [facility] PCU ROOM: [address] [place] [address] DESCRIPTION: US Kidney Bilateral Complete Attending Physician: Pankaj Hicks M.D. Ordering Physician: Pankaj Hicks M.D. Primary Care Physician: Stephon Contreras M.D. MEDICAL IMAGING REPORT This report is preliminary unless electronic signature is present EXAM Bilateral renal ultrasound. INDICATIONS Pelvic pain. Difficulty urinating. Painful urination. Renal insufficiency with a GFR of 45.2. FINDINGS The right kidney measures 11.7 cm. The left kidney measures 11.8 cm. There is mild renal cortical atrophy and chronic medical renal disease. Multiple benign renal cysts are identified. The largest cyst in the right kidney measures up to 10 cm. The largest left cyst measures up to 4 cm. No hydronephrosis. The bladder is unremarkable. IMPRESSION 1. Chronic medical renal disease and mild renal atrophy. 2. Bilateral renal cysts. 3. No hydronephrosis. Dictated by... Musa Gordon M.D. THIS IS AN ELECTRONICALLY VERIFIED REPORT Musa Gordon M.D. at 02/01/2017 1:13 PM DISHA/sujey TD: 01/31/2017 21:06 JOB #: [id number] MEDICAL IMAGING REPORT [facility] A Service [facility] RADIOLOGY TEXT RESULTS PATIENT: DELVIS RODRIGUEZ LOCATION: [facility] 334 : 30 UNIT #: [id number] AGE: [address]: Pankaj Hicks MD SEX: M ORDER DR: Page 1 of 1 COPY
--- NOTE | ~2017-01-30 | EKG ---
PATIENT: DELVIS RODRIGUEZ UNIT #: [id number] Ventricular Rate: 60 BPM Atrial Rate: 66 BPM P-R Interval: 154 ms QRS Duration: 94 ms Q-T Interval: 430 ms QTC Calculation(Bezet): 430 ms P Carlton: 67 degrees Calculated R Carlton: 39 degrees Calculated T Carlton: 79 degrees Diagnosis Line: 5 Sinus rhythm with Premature atrial complexes Diagnosis Line: Otherwise normal ECG Diagnosis Line: No previous ECGs available Diagnosis Line: Confirmed by JOLANTA SUAREZ MD ([id number]) on Diagnosis Line: 01/30/2017 9:16:27 PM INTERPRETING MD: RYAN
--- NOTE | ~2017-01-30 | CT71 ---
[facility] A Service [facility] RADIOLOGY TEXT RESULTS PATIENT: DELVIS RODRIGUEZ LOCATION: [facility] : 30 UNIT #: [id number] AGE: [address]: Pankaj Hicks MD SEX: M ORDER DR: [id number] [facility] [address] [facility]. [place], [place] [address] [id number] I MR#: [id number] Acc #: [id number] NAME: DELVIS RODRIGUEZ. : 1930 SEX: M STUDY DATE/TIME: 01/30/2017 5:08 UNIT: C3A PCU ROOM: [facility] STUDY DESCRIPTION: CT Head Wo Contrast Attending Physician: Pankaj Hicks M.D. Ordering Physician: Laurence Allan M.D. Primary Care Physician: Stephon Contreras M.D. MEDICAL IMAGING REPORT This report is preliminary unless electronic signature is present EXAM CT scan of the brain without contrast HISTORY Dizziness for a week with high blood pressure. COMPARISON 02/18/[address] exam was performed with one or more of the following radiation dose reduction techniques: automatic exposure control, adjustment of mA and/or kV according to patient size, and iterative reconstruction. FINDINGS Unenhanced images were obtained through the brain. Ventricles and subarachnoid spaces are normal. There are no masses or extraaxial fluid collections or hemorrhage. IMPRESSION Normal unenhanced head CT scan. Dictated by... Ang Espinoza M.D. THIS IS AN ELECTRONICALLY VERIFIED REPORT Ang Espinoza M.D. at 01/30/2017 1:22 PM ARABELLA/shaneka TD: 01/30/2017 10:34 JOB #: [id number] [facility] A Service [facility] RADIOLOGY TEXT RESULTS PATIENT: DELVIS RODRIGUEZ LOCATION: [facility] 334 : 30 UNIT #: [id number] AGE: [address]: Pankaj Hicks MD SEX: M ORDER DR: MEDICAL IMAGING REPORT Page 1 of 1 COPY
--- NOTE | ~2017-01-30 | CO ---
Unit #: [id number] #: [id number] Patient: DELVIS RODRIGUEZ [id number] [facility] [address] [facility]. [place], [place] [address] [id number] I MR#: [id number] NAME: DELVIS RODRIGUEZ. ROOM: 334 Age: 86 Sex: M Admission Date: 01/30/2017 : 1930 Attending Physician: Pankaj Hicks M.D. Primary Care Physician: Stephon Contreras M.D. CONSULTATION REPORT REASON FOR CONSULTATION Urinary retention. HISTORY This 86-year-old man was admitted for dizziness and bradycardia. He has a history of PCI and stent in October of 2016 at [facility]. He is feeling improved since admission. He has admitted to a sense of trouble emptying his bladder. Ultrasound was performed last evening showing over 455 mL in the bladder after a 500 mL urination. He evidently declined a catheter placement last evening. He feels he is voiding adequately. He has been taking alfuzosin per primary care for many years. He saw my former partner, Dr. Brown, about five years ago and was urologically stable at that time. He reports a remote history of bladder cancer. (1) that he was offered a cystectomy and that he had chemotherapy injection without radiotherapy. This sounds irregular, but was 20 years ago. He has, since that time, had no gross hematuria or reason to suspect recurrent disease. In fact, there is a CT scan of the abdomen and pelvis without contrast on record at [place] from 02/18/15. This is not reviewable on PACS, but does specify in addition to multiple known renal cysts up to 6.3 cm on the right and 1 that was stable 8 mm hyperdense in the left kidney. Also, commented upon are a normal prostate and a normal bladder. He sleeps through the night with no nocturia. He has morning frequency associated with diuretics and does not feel he empties completely, but does not have frequency or urgency and his urinations are large volume. He denies any history of gross hematuria or urinary infection. He passed a stone about 20 years, also. PAST MEDICAL HISTORY Diabetes, hypertension, coronary disease, pneumonia, GERD, COPD, and degenerative joint disease. SURGERIES Appendectomy, back surgery, knee surgery, hand surgery, vocal cord surgery, and TUR of bladder tumor. MEDICATIONS Include alfuzosin, Eliquis, and low-dose aspirin in addition to Advair, Prilosec, theophylline, metformin, nitroglycerin, ProAir, Lipitor, carvedilol, Spiriva, and Lasix. He was on Plavix at home and Eliquis is currently being given. Unit #: [id number] #: [id number] Patient: DELVIS RODRIGUEZ ALLERGIES None known. FAMILY HISTORY Negative for prostate cancer. SOCIAL HISTORY He stopped smoking in 1988. REVIEW OF SYSTEMS Dizziness, cough, and the above urinary symptoms. EXAMINATION GENERAL APPEARANCE: Patient is sitting up eating breakfast. VITAL SIGNS: Afebrile with stable vital signs. Temperature 97.6, pulse 60, blood pressure 146/80, respirations 20, oxygen saturation 97%, height 5 feet, 11 inches, and weight 203 pounds. ABDOMEN: Large, soft, (2) . GENITOURINARY: Phallus uncircumcised. Normal glans and meatus. Testes and epididymides pendulous, normal, and descended bilaterally. RECTAL: Digital exam normal anus and sphincter tone. Empty vault. Prostate 35 g and benign. No nodularity, fluctuance, or tenderness. DIAGNOSTIC STUDIES LABORATORY: BUN 36 and creatinine 1.5 yesterday; now 32 and 1.4, respectively. Hemoglobin 11.1. Urinalysis is normal. IMAGING: Head CT negative. Prior abdominal and pelvic CT as noted above. IMPRESSION 1. Chronic trouble emptying may represent uncomplicated chronically elevated postvoid residual, but he does have some component of renal insufficiency as well. 2. History of stable benign renal cysts. PLAN Agree with observing and continuing alfuzosin indefinitely, but will obtain a renal ultrasound to rule out hydronephrosis. Thank you for the consultation. We will follow. Dictated by... Darien Medrano M.D. MAYLIN/alin TD: 01/31/2017 10:57 JOB #: [id number] CC: Savita Ellis M.D. Unit #: [id number] #: [id number] Patient: DELVIS RODRIGUEZ CONSULTATION REPORT Page 1 of 1 X Darien Medrano MD CONSULTATION REPORT
[~2017-01-30 00:48] MED LIST changes: +ADVAIR 500-501 EACH INH; +ALFUZOSIN HCL10 MG; +ASPIRIN81 M2 PO; +CARVEDILOL12.5 MG PO; +CLOPIDOGREL75 MG PO; +FUROSEMIDE40 MG PO; +IMDUR PO; +LOSARTAN POTASS50 MG PO; +METFORMIN HCL500 M1 PO; +OMEPRAZOLE20 M2 PO; +OMNICEF300 M1 PO; +PREDNISONE10 MG PO; +PROAIR HFA8.5 GM INH; +THEO-DUR300 MG DOB
[2017-01-30 01:58] LABS: ARTERIAL BLOOD GAS HCO3 24.5 mmol/L; ARTERIAL BLOOD GAS PCO2 37.9 mmHg (35.0-45.0); ARTERIAL BLOOD GAS PO2 82.4 mmHg (80.0-100)
[2017-01-30 01:59] LABS: ARTERIAL BLD GAS O2 SATURATION 95.4 % (90.0-100.0); ARTERIAL BLOOD GAS ALLEN TEST NORMAL; ARTERIAL BLOOD GAS ART SITE RIGHT RADIAL; ARTERIAL BLOOD GAS CARBOXY HB 0.9 %sat (0.0-9.0); ARTERIAL BLOOD GAS MET HB 0.8 %sat (0.0-2.0); ARTERIAL DRAW? YES
[2017-01-30 02:30] LABS: POC - CKMB 1.6 ng/mL (0.0-7.9); POC - TROPONIN <0.05 ng/mL (<=0.05)
[2017-01-30 02:40] LABS: BASOPHIL% 0.4 % (0-2.5); EOSINOPHIL# 0.1 X10e3 (0-0.7); EOSINOPHIL% 0.9 % (0.0-7.0); HEMATOCRIT 33.6 % (38.0-50.0); HEMOGLOBIN 11.1 gm/dL (13.0-16.0); LYMPHOCYTE# 1.4 X10e3 (1.0-3.5); LYMPHOCYTE% 21.5 % (17.0-45.0); MEAN CORPUSCULAR HEMOGLOBIN 31.1 PG (28-34); MEAN CORPUSCULAR HGB CONC 33.1 g/dL (30-36); MEAN PLATELET VOLUME 9.7 FL (6.5-11.5); MONOCYTE# 0.7 X10e3 (0-1.0); MONOCYTE% 11.3 % (3.0-12.0); NEUTROPHIL# 4.3 X10e3 (1.5-7.1); NEUTROPHIL% 65.9 % (40-75); PLATELET COUNT 129 X10e3 (140-420); RED BLOOD COUNT 3.58 X10e (3.90-5.60); RED CELL DISTRIBUTION WIDTH 16.4 % (11.0-15.5); WHITE BLOOD COUNT 6.5 X10e3 (4.0-10.5)
[2017-01-30 02:41] LABS: DIFF IND NO
[2017-01-30 02:53] LABS: INR 1.1; PARTIAL THROMBOPLASTIN TIME 28.2 SECONDS (23.5-31.3); PROTHROMBIN TIME (PATIENT) 11.1 SECONDS (9.6-11.5)
[2017-01-30 03:01] LABS: ALBUMIN SERUM 3.8 g/dL (3.5-5.0); BILIRUBIN, DIRECT 0.1 mg/dL (0.0-0.2); BILIRUBIN,INDIRECT 0.5 mg/dL (0.0-0.9); BILIRUBIN,TOTAL 0.6 mg/dL (0.2-2.0); CALCIUM SERUM 8.5 mg/dL (8.4-10.2); CREATININE SERUM 1.5 mg/dL (0.6-1.4); GLOM FILT RATE Estimated 41.6 mL/min (>60); MAGNESIUM 1.5 mg/dL (1.6-3.0); POTASSIUM 3.9 mmol/L (3.5-5.1); PROTEIN TOTAL SERUM 6.4 g/dL (6.0-8.3)
[2017-01-30 05:53] LABS: URINE SOURCE CLEAN CATCH
[2017-01-30 06:28] LABS: URINE APPEARANCE CLEAR; URINE BILIRUBIN NEG (NEG); URINE BLOOD NEG (NEG); URINE COLOR YELLOW; URINE GLUCOSE NEG (NEG); URINE KETONE NEG (NEG); URINE LEUKOCYTE ESTERASE NEG (NEG); URINE NITRATE NEG (NEG); URINE PROTEIN NEG (NEG); URINE SPECIFIC GRAVITY 1.015 (1.003-1.035); URINE UROBILINOGEN 0.2 MG/DL (NEG)
[2017-01-30 06:35] LABS: CULTURE INDICATED? NO
[2017-01-30 06:53] LABS: POC - CKMB 1.1 ng/mL (0.0-7.9); POC - TROPONIN <0.05 ng/mL (<=0.05)
[2017-01-30 14:04] LABS: %MB 2.4 % (0.0-4.0); MB 2.1 ng/ml
[2017-01-30 19:07] LABS: %MB 2.7 % (0.0-4.0); MB 2.4 ng/ml
[2017-01-31 06:37] LABS: BUN/CREATININE RATIO 22.85; CALCIUM SERUM 8.5 mg/dL (8.4-10.2); CREATININE SERUM 1.4 mg/dL (0.6-1.4); GLOM FILT RATE Estimated 45.2 mL/min (>60); POTASSIUM 4.2 mmol/L (3.5-5.1)
[2017-02-01 06:30] LABS: BUN/CREATININE RATIO 24.28; CALCIUM SERUM 8.2 mg/dL (8.4-10.2); CREATININE SERUM 1.4 mg/dL (0.6-1.4); GLOM FILT RATE Estimated 45.2 mL/min (>60); POTASSIUM 3.5 mmol/L (3.5-5.1)
[2017-02-01] MEDS ORDERED: LASIX20 MG PO (13:02)
[2017-02-01] MEDS ORDERED: ELIQUIS2.5 MG PO (13:07)
[2017-02-01] MEDS ORDERED: TYL325 PO (13:14)
== END 2017-02-01 14:34 | disposition home or self-care (01) | DRG 683 ==
LOC: CED 00:48 → C3A PCU 06:00 → CEDOF 06:00 → C3A PCU 06:28 → CEDOF 06:28 → CED 06:28 → C3A PCU 07:55 → CEDOF 07:55 → C3A PCU 08:03
PROVIDERS: Internal Medicine; Internal Medicine Cardiovascular Disease; Student in an Organized Health Care Education/Training Program
DX: N17.9 Acute kidney failure, unspecified (principal); I50.22 Chronic systolic (congestive) heart failure; R00.1 Bradycardia, unspecified; I11.0 Hypertensive heart disease with heart failure; E83.42 Hypomagnesemia; E11.9 Type 2 diabetes mellitus without complications; D64.9 Anemia, unspecified; R42 Dizziness and giddiness; I25.10 Atherosclerotic heart disease of native coronary artery without angina pectoris; E78.5 Hyperlipidemia, unspecified; K21.9 Gastro-esophageal reflux disease without esophagitis; M10.9 Gout, unspecified; M19.90 Unspecified osteoarthritis, unspecified site; Z85.51 Personal history of malignant neoplasm of bladder; Z79.01 Long term (current) use of anticoagulants; Z95.5 Presence of coronary angioplasty implant and graft; I95.1 Orthostatic hypotension; N28.1 Cyst of kidney, acquired; N40.1 Benign prostatic hyperplasia with lower urinary tract symptoms; R33.8 Other retention of urine
CPT/HCPCS: 36415; 36600; 70450; 71010; 76770; 80048; 80076; 81003; 82550; 82553; 82803; 82947; 83735; 83880; 84484; 85025; 85610; 85730; 93005; 94640; 94760; 97116; 97161; 97165; 99285; G8978-GP; G8979-GP; G8980-GP; G8987-GO; G8988-GO; G8989-GO; J1815; J1940; J3475